=== PATIENT | male | born 1955 | race Caucasian/White ===

== ENCOUNTER → 2017-07-09 | Outpatient (CLI) | payer BC | END | disposition home or self-care (01) | LOC: US 10:05 | DX: I80.9 Phlebitis and thrombophlebitis of unspecified site (principal); M79.604 Pain in right leg | CPT/HCPCS: 93971 ==

== ENCOUNTER → 2017-09-08 | Outpatient (CLI) | payer BC | END | disposition home or self-care (01) | LOC: KCIC US 13:10 | DX: R60.0 Localized edema (principal) | CPT/HCPCS: 93971 ==

== ENCOUNTER → 2017-10-16 | Outpatient (CLI) | payer BC | END | disposition home or self-care (01) | LOC: KCIC US 14:50 | DX: L03.116 Cellulitis of left lower limb (principal); M79.89 Other specified soft tissue disorders | CPT/HCPCS: 93926 ==

== ENCOUNTER → 2017-10-28 | Outpatient (CLI) | payer BC | END | disposition home or self-care (01) | LOC: PMGWOUND 11:38 | DX: I87.312 Chronic venous hypertension (idiopathic) with ulcer of left lower extremity (principal); L97.221 Non-pressure chronic ulcer of left calf limited to breakdown of skin; E78.5 Hyperlipidemia, unspecified; M19.90 Unspecified osteoarthritis, unspecified site; G89.4 Chronic pain syndrome; E66.9 Obesity, unspecified; Z86.73 Personal history of transient ischemic attack (TIA), and cerebral infarction without residual deficits; Z87.891 Personal history of nicotine dependence | CPT/HCPCS: 99203 ==

== ENCOUNTER → 2017-11-04 | Outpatient (CLI) | payer BC | END | disposition home or self-care (01) | LOC: PMGWOUND 10:49 | DX: I87.312 Chronic venous hypertension (idiopathic) with ulcer of left lower extremity (principal); L97.221 Non-pressure chronic ulcer of left calf limited to breakdown of skin; G89.4 Chronic pain syndrome; E78.5 Hyperlipidemia, unspecified; E66.9 Obesity, unspecified; M19.90 Unspecified osteoarthritis, unspecified site; Z87.891 Personal history of nicotine dependence; Z86.73 Personal history of transient ischemic attack (TIA), and cerebral infarction without residual deficits | CPT/HCPCS: 99214 ==

== ENCOUNTER → 2018-04-10 | Outpatient (CLI) | payer BC ==
[2014-10-10 18:10] VITALS: BP 117/71
[~2018-04-10] MED LIST: CELE100C PO; HYDR-2761 PO; TRAM50TA PO
--- NOTE | 2018-04-10 16:33 | RAD ---
Examination: VENOUS LOWER EXTREMITY RIGHT History: DX: Right leg edema IMP: Right leg negative for DVT- Enlarged right groin node that has retained its fatty hilum Comparison/Correlation: None Findings: Right lower extremity venous duplex ultrasound exam was performed. Color and spectral Doppler imaging performed. Compression and augmentation utilized. Right groin lymph node is presumably reactive with a benign appearance. Right common femoral, superficial femoral, partially visualized deep femoral, popliteal, peroneal, and posterior tibial veins have normal flow and compressibility. No thrombus identified. Impression: No right lower extremity DVT. Electronically signed by: Dave Cook MD (04/10/2018 4:29 PM) [facility]
== END | disposition home or self-care (01) ==
LOC: RAD 15:33
PROVIDERS: ATTEND Nurse Practitioner Gerontology
DX: R60.0 Localized edema (principal)
CPT/HCPCS: 93971

== ENCOUNTER → 2018-08-13 | Outpatient (CLI) | payer BC ==
[2014-10-10 18:10] VITALS: BP 117/71
--- NOTE | 2018-08-13 10:55 | RAD ---
MR#: [id number] Date of Study: 08/13/2018 Ordering Physician: JUSTINE GROSS, Referring Physician: JUSTINE GROSS, Tech: Leslie Puri RDMS, RVT, RTR APPROVED REPORT Patient Location : OUT-PATIENT Indications Lower Extremity Edema : Bilateral Left healing ulcer Posterior distal calf Greater Saphenous Veins (GSV) Significant venous relux noted in the LEFT GSV at the following levels : Superficial Femoral Junction , Proximal Thigh, Mid Thigh, Distal Thigh, Proximal Calf, Mid Calf, Distal Calf Lesser Saphenous Veins (LSV) Significant venous reflux is noted in the Left LSV. Leftt Thigh extension noted : Yes Findings Bilateral greater and lesser saphenous veins were imaged. On the right the great saphenous vein has a maximum diameter of 2.9 mm and does not show any evidence of reflux. The right lesser saphenous veins also does not show any evidence of reflux. The left great saphenous vein has reflux noted from the groin to the ankle. The vein measures approxi mately 5.2 mm proximally and has a reflux time of 1.8 seconds. The left lesser saphenous vein also cabrera s reflux from the ankle to the mid thigh where it attaches the GSP. There is note of a healed ulcer o isaura the posterior part of the distal calf on the left side. Critical Notification Critical Value: No <Conclusion> 1. Positive for reflux in the left greater and lesser saphenous veins. Signed by : Justine Gross, Electronically Approved : 08/13/2018 10:55:27
--- NOTE | 2018-08-18 09:46 | CARD ---
MR#: [id number] Date of Study: 08/13/2018 Ordering Physician: JUSTINE GROSS, Referring Physician: JUSTINE GROSS, Tech: Leslie Mendez APPROVED REPORT EXAM: Two-dimensional and M-mode echocardiogram with Doppler and color Doppler. Other Information Quality : AverageHR: 63bpm Technically limited study due to COPD INDICATION Edema RISK FACTORS Hyperlipidemia Previous smoker 2D DIMENSIONS RVDd3.2 (2.9-3.5cm)Left Atrium(2D)3.1 (1.6-4.0cm) IVSd1.3 (0.7-1.1cm)Aortic Root(2D)3.0 (2.0-3.7cm) LVDd5.1 (3.9-5.9cm)LVOT Diameter2.2 (1.8-2.4cm) PWd1.0 (0.7-1.1cm)LVDs3.9 (2.5-4.0cm) FS (%) 23.8 %SV59.0 ml LVEF(%)47.2 (>50%) Aortic Valve AoV Peak Valentino.134.9cm/sAoV VTI27.2cm AO Peak GR.7.3mmHgLVOT Peak Valentino.92.5cm/s LVOT VTI 19.30cmAO Mean GR.4mmHg NAJMA (VMAX)1.63ze5HLH (VTI)2.58cm2 AI P 1/2 Knso385vq Mitral Valve MV E Mwtfvget98.2cm/sMV DECEL HLCH360ms MV A Mznotqoq96.0cm/sMV OKW87to E/A Ratio0.8MVA (PHT)2.72cm2 TDI E/Lateral E'6.7E/Medial E'6.5 Pulmonary Valve PV Peak Inqfrgwv930.6cm/sPV Peak Grad.5mmHg Tricuspid Valve TR P. Eygonpqz522bq/sRAP HDOKZQVA5kmTx TR Peak Gr.39orRgPHAY13fdRm Pulmonary Vein S1 Nxmgtbhp68.1cm/sD2 Owlvzybg85.1cm/s PVa aijupxyh102irea LEFT VENTRICLE The left ventricle is normal size. There is borderline to mild concentric left ventricular hypertroph y. The left ventricular systolic function is mildly diminished. The Ejection Fraction is 45-50%. Ther e is slight global hypokinesis of the left ventricle. Transmitral Doppler flow pattern is Grade I-abn ormal relaxation pattern. RIGHT VENTRICLE The right ventricle is normal size. There is normal right ventricular wall thickness. The right ventr icular systolic function is normal. ATRIA The left atrium size is normal. The right atrium size is normal. The interatrial septum is intact wit h no evidence for an atrial septal defect or patent foramen ovale as noted on 2-D or Doppler imaging. AORTIC VALVE The aortic valve is thickened but opens well. Doppler and Color Flow revealed trace aortic regurgitat ion. There is no significant aortic valvular stenosis. MITRAL VALVE The mitral valve is thickened but opens well. There is no evidence of mitral valve prolapse. There is no mitral valve stenosis. Doppler and Color Flow revealed no mitral valve regurgitation noted. TRICUSPID VALVE The tricuspid valve is normal in structure and function. Doppler and Color Flow revealed trace tricus pid regurgitation with an estimated PAP of 23 mmHg. There is no tricuspid valve stenosis. PULMONIC VALVE The pulmonic valve is not well visualized. Doppler and Color Flow revealed trace pulmonic valvular re gurgitation. GREAT VESSELS The aortic root is normal in size. The IVC is normal in size and collapses >50% with inspiration. PERICARDIAL EFFUSION There is no evidence of significant pericardial effusion. Critical Notification Critical Value: No <Conclusion> The left ventricular systolic function is mildly diminished. The Ejection Fraction is 45-50%. Transmitral Doppler flow pattern is Grade I-abnormal relaxation pattern. Trace tricuspid regurgitation with an estimated PAP of 23 mmHg. There is no evidence of significant pericardial effusion. Signed by : Maynor Perez, Electronically Approved : 08/17/2018 17:08:50
== END | disposition home or self-care (01) ==
LOC: ECHO 08:03
PROVIDERS: ATTEND Internal Medicine Cardiovascular Disease
DX: R60.0 Localized edema (principal)
CPT/HCPCS: 93306; 93970